=== PATIENT | male | born 1975 | race Caucasian/White ===

== ENCOUNTER 2023-04-24 16:52 | Inpatient (IN) | payer MEDICARE, MEDICAID, SELFPAY ==
[2023-04-24 17:30] VITALS: BP 102/73; PULSE 111; RESP 18; TEMP 36.6; O2SAT 100; BMI 26.9
--- NOTE | 2023-04-24 18:54 | PC.ADMIT ---
Jamel was admitted to [facility] at 1715 on 04/24/23 from [facility] ED for treatment of schizophrenia. He signed a CV. Jamel broke into his lock box of medications and took 10 clonidine tablets. He initially stated to crisis that he was just trying to get some sleep, but on admission to [facility] stated to this RN that this was a suicide attempt. He also endorses increased AH and VH and paranoia. He is a&ox4 and was pleasant and cooperative with admission process. He reports he is feeling anxious. He denied AVH during admission interview, but after almost every question, he would repeat the question, pause, and tilt his head as if listening before answering this RN. Thought process appears disorganized and patient would answer questions inappropriately at times. He reports difficulty falling asleep and staying asleep. He stated that his goal for treatment to detox from marijuana . BAL <3 and utox positive for THC. He reports past substance abuse but stated I don't want to talk about that now . Jamel reported that he has psoriasis and was noted to have rashes all over his body and face. He denies suicidal and homicidal thoughts and intent and reports he feels safe and can seek out staff if feeling unsafe. Sharps check was completed by this RN and male MHC.
[2023-04-24 20:20] VITALS: BP 119/69; PULSE 69; RESP 16; TEMP 36.1; O2SAT 99
[2023-04-24] MEDS: chlorproMAZINE HCl 100 MG TABLET 400 MG PO (21:28)
[2023-04-24] MEDS: Divalproex Sodium 500 MG TABLET.DR 1500 MG PO (21:29)
[2023-04-24] MEDS: clonazePAM 1 MG TABLET PO (23:05)
[2023-04-25 08:30] VITALS: BP 122/67; PULSE 110; TEMP 36.8; O2SAT 98
[2023-04-25] MEDS: Metoprolol Succinate ER 50 MG TAB.ER.24H PO (08:38)
[2023-04-25] MEDS: metFORMIN HCl ER 500 MG TAB.ER.24H 1000 MG PO (08:38)
[2023-04-25] MEDS: amLODIPine Besylate 5 MG TABLET PO (08:38)
[2023-04-25] MEDS: Loratadine 10 MG TABLET PO (08:39)
[2023-04-25] MEDS: Atorvastatin Calcium 40 MG TABLET PO (08:39)
--- NOTE | 2023-04-25 08:48 | HO.PSYADMNOT ---
HPI Chief Complaint: Schizophrenia Spectrum,Psychotic Disorder Diagnostics Vital Signs (24Hr): Vital Signs - 24 hr 04/24/23 17:30 04/24/23 20:20 04/25/23 08:30 Temperature 97.8 F 96.9 F 98.3 F Pulse Rate 111 H 69 110 H Respiratory Rate 18 16 Blood Pressure 102/73 119/69 122/67 Pulse Oximetry 100 99 98 Oxygen Delivery Method Room Air Room Air Room Air BMI result Body Mass Index 26.9 Meds/Allergies Meds Home Medications Medication Instructions Recorded Confirmed Type amlodipine 5 mg tablet 5 mg PO DAILY 04/24/23 04/24/23 History aripiprazole 15 mg tablet 15 mg PO DAILY 04/24/23 04/24/23 History atorvastatin 40 mg tablet 40 mg PO DAILY 04/24/23 04/24/23 History celecoxib 100 mg capsule 100 mg PO BID PRN pain 04/24/23 04/24/23 History cetirizine 10 mg tablet 10 mg PO DAILY 04/24/23 04/24/23 History chlorpromazine 200 mg tablet 400 mg PO BEDTIME 04/24/23 04/24/23 History chlorpromazine 50 mg tablet 50 mg PO BID PRN anxiety 04/24/23 04/24/23 History clonazepam 1 mg tablet 1 mg PO BID PRN Anxiety 04/24/23 04/24/23 History clonidine HCl 0.1 mg tablet 0.1 mg PO DAILY PRN Anxiety 04/24/23 04/24/23 History divalproex 500 mg tablet,delayed 1,500 mg PO BEDTIME 04/24/23 04/24/23 History release hydroxyzine pamoate 50 mg capsule 50 mg PO Q4-5H PRN Anxiety 04/24/23 04/24/23 History metformin 500 mg tablet,extended 1,000 mg PO DAILY 04/24/23 04/24/23 History release 24 hr metoprolol succinate 50 mg 50 mg PO DAILY 04/24/23 04/24/23 History tablet,extended release 24 hr trazodone 50 mg tablet 50 mg PO BEDTIME 04/24/23 04/24/23 History Allergies Allergies Allergy/AdvReac Type Severity Reaction Status Date / Time bee pollen Allergy Unknown Verified 04/24/23 17:33 haloperidol [From Haldol] Allergy Unknown Verified 04/24/23 17:33 perphenazine [From Trilafon] Allergy Unknown Verified 04/24/23 17:33 Assessment & Plan Statement Statement: I have reviewed the history and physical and performed a pertinent examination on my patient. No changes have occurred unless specified. If the History and Physical was not performed prior to admission, the Hospitalist's service will be consulted for completing the admission physical. Time Spent With Patient Time: Total time managing care of this patient today ____ minutes.
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
[2023-04-25 11:26] LABS: Cholesterol 103 mg/dL; Creatinine Clr Calc Pharmacy 101.5; Estimated Glomerular Filt Rate > 60; HDL Cholesterol 40 mg/dL; LDL Cholesterol Calculated 45 mg/dl; Triglycerides 92 mg/dL
--- NOTE | 2023-04-25 12:19 | HO.PM.IMCN ---
History of Present Illness Data of Consult Service Date: 04/25/23 Primary Care Provider: Unknown Physician HPI Reason for consult: Admission H&P Pt is a 47-year-old male with a PMH significant for?HTN, HLD, wqw-ranhhxy-osazmieso diabetes type 2, seasonal allergies, and psoriasis who is admitted to [facility] psychiatry unit for increasing auditory hallucinations and possibly ODing clonidine by taking 10 tablets in order to go to sleep. Patient denies any SI. Medical consult for admission H&P. ?Patient complains of back ?tightness? and diffuse back pain. Denies any trauma to the area or recent falls. Says his back has been bothering him since sleeping on the ER bed. Pt also notes his psoriasis has been worsening the past few weeks and he now has lesions on face, elbows, knees, lower extremities. Denies itching or pain. It is not clear if patient regularly sees a PCP course followed by a digital account director. Patient apparently not on any medication for psoriasis. Patient denies chest pain/pressure, palpitations. No shortness of breath. Denies fever, chills, nausea, vomiting, diarrhea. Review of Systems Review of Systems: Back tightness and muscle pain Worsening psoriasis on face, elbows, knees, lower legs Denies chest pain/pressure, palpitations No shortness of breath Denies fever, chills, nausea, abdominal pain Yes all other systems are reviewed and are negative [facility] Social History Household Members: None Housing: Apartment Do you presently have visiting nurse or other home services: Yes (twice a day, has lock box) Patient Tobacco Use Status: Current everyday Tobacco user Tobacco use type: Cigar e-Cigarette/Vaping Use: Currently Using Second Hand Smoke Exposure: Yes Substance Use Type: Marijuana service: No Sexual orientation: Don't Know Meds Allergies Allergy/AdvReac Type Severity Reaction Status Date / Time bee pollen Allergy Unknown Verified 04/24/23 17:33 haloperidol [From Haldol] Allergy Unknown Verified 04/24/23 17:33 perphenazine [From Trilafon] Allergy Unknown Verified 04/24/23 17:33 Active Medications: Current Medications Acetaminophen (Acetaminophen 325 Mg Tablet) 650 mg PO Q6H PRN PRN Reason: Headache/Pain Mild Scale (1-3) Al Hydroxide/Mg Hydroxide (Magnesium Hydrox/Alum Hydrox 30 Ml Oral.Susp) 30 ml PO Q6H PRN PRN Reason: Heartburn/Nausea Amlodipine Besylate (Amlodipine Besylate 5 Mg Tablet) 5 mg PO DAILY [facility]; Protocol Last Admin: 04/25/23 08:38 Dose: 5 mg Atorvastatin Calcium (Atorvastatin Calcium 40 Mg Tablet) 40 mg PO DAILY [facility] Last Admin: 04/25/23 08:39 Dose: 40 mg Celecoxib (Celecoxib 100 Mg Capsule) 100 mg PO BID PRN PRN Reason: pain/inflamation Chlorpromazine HCl (Chlorpromazine Hcl 25 Mg Tablet) 50 mg PO BID PRN PRN Reason: anxiety Last Admin: 04/24/23 23:05 Dose: 50 mg Chlorpromazine HCl (Chlorpromazine Hcl 100 Mg Tablet) 400 mg PO BEDTIME [facility] Last Admin: 04/24/23 21:28 Dose: 400 mg Clonazepam (Clonazepam 1 Mg Tablet) 1 mg PO BID PRN PRN Reason: Anxiety Last Admin: 04/24/23 23:05 Dose: 1 mg Clonidine HCl (Clonidine Hcl 0.1 Mg Tablet) 0.1 mg PO DAILY PRN; Protocol PRN Reason: Anxiety Divalproex Sodium (Divalproex Sodium 500 Mg Tablet.Dr) 1,500 mg PO BEDTIME [facility] Last Admin: 04/24/23 21:29 Dose: 1,500 mg Hydroxyzine HCl (Hydroxyzine Hcl 50 Mg Tablet) 50 mg PO Q6H PRN PRN Reason: Anxiety Loratadine (Loratadine 10 Mg Tablet) 10 mg PO DAILY [facility] Last Admin: 04/25/23 08:39 Dose: 10 mg Magnesium Hydroxide (Milk Of Magnesia 30 Ml Oral.Susp) 30 ml PO DAILY PRN PRN Reason: Constipation Metformin HCl (Metformin Hcl Er 500 Mg Tab.Er.24h) 1,000 mg PO DAILY [facility] Last Admin: 04/25/23 08:38 Dose: 1,000 mg Metoprolol Succinate (Metoprolol Succinate Er 50 Mg Tab.Er.24h) 50 mg PO DAILY [facility]; Protocol Last Admin: 04/25/23 08:38 Dose: 50 mg Nicotine Polacrilex (Nicotine Polacrilex 2 Mg Gum) 4 mg BUCCAL Q2H PRN PRN Reason: Nicotine Cravings Trazodone HCl (Trazodone Hcl 50 Mg Tablet) 50 mg PO BEDTIME PRN PRN Reason: insomnia Home Medications Medication Instructions Recorded Confirmed Last Taken Type amlodipine 5 mg tablet 5 mg PO DAILY 04/24/23 04/24/23 Unknown History aripiprazole 15 mg tablet 15 mg PO DAILY 04/24/23 04/24/23 Unknown History atorvastatin 40 mg tablet 40 mg PO DAILY 04/24/23 04/24/23 Unknown History celecoxib 100 mg capsule 100 mg PO BID PRN pain 04/24/23 04/24/23 Unknown History cetirizine 10 mg tablet 10 mg PO DAILY 04/24/23 04/24/23 Unknown History chlorpromazine 200 mg tablet 400 mg PO BEDTIME 04/24/23 04/24/23 Unknown History chlorpromazine 50 mg tablet 50 mg PO BID PRN anxiety 04/24/23 04/24/23 Unknown History clonazepam 1 mg tablet 1 mg PO BID PRN Anxiety 04/24/23 04/24/23 Unknown History clonidine HCl 0.1 mg tablet 0.1 mg PO DAILY PRN Anxiety 04/24/23 04/24/23 Unknown History divalproex 500 mg tablet,delayed 1,500 mg PO BEDTIME 04/24/23 04/24/23 Unknown History release hydroxyzine pamoate 50 mg capsule 50 mg PO Q4-5H PRN Anxiety 04/24/23 04/24/23 Unknown History metformin 500 mg tablet,extended 1,000 mg PO DAILY 04/24/23 04/24/23 Unknown History release 24 hr metoprolol succinate 50 mg 50 mg PO DAILY 04/24/23 04/24/23 Unknown History tablet,extended release 24 hr trazodone 50 mg tablet 50 mg PO BEDTIME 04/24/23 04/24/23 Unknown History Physical Exam Vital Signs and Narrative: Vital Signs: Last Vital Signs Temp 98.3 F 04/25/23 08:30 Pulse 110 H 04/25/23 08:30 Resp 16 04/24/23 20:20 BP 122/67 04/25/23 08:30 Pulse Ox 98 04/25/23 08:30 O2 Del Method Room Air 04/25/23 08:30 BMI result Body Mass Index 26.9 Constitutional: Alert, restless, cooperative, in no acute distress. Mental Status: Oriented to person, place and time. Eyes: Pupils are equal, round, and reactive to light. Ear, Nose, and Throat: Oropharynx clear, mucous membranes moist. Ears and nose without deformities. Trachea midline. Respiratory: Clear to auscultation bilaterally. No wheezing, rales, or rhonchi. Cardiovascular: S1, S2 regular. No murmurs, rubs, or gallops. Gastrointestinal: Abdomen soft, non-tender, non-distended. Normal bowel sounds. Neurologic: Cranial nerves II-XII are grossly intact bilaterally. No focal neurological deficits. Moves all extremities spontaneously. Skin: Scaly plaques and patches noted on upper and lower extensor services bilaterally, as well as on face, ears bilaterally, and lower legs bilaterally. Musculoskeletal: No cyanosis or clubbing. Extremities: No edema. Psychiatric: Pressured speech, easily redirectable, cooperative. Results Labs 04/25/23 09:01 Labs: Laboratory Results - last 24 hr 04/25/23 04/25/23 09:01 09:01 Estim Creat Clear Calc 101.5 Estimated GFR > 60 Estimat Average Glucose 126 Hemoglobin A1c % 6.0 Triglycerides 92 Cholesterol 103 LDL Cholesterol, Calc 45 HDL Cholesterol 40 Assessment and Plan (1) Routine history and physical examination of adult: Status: Acute (2) Psoriasis: Status: Acute Plan Pt is a 47-year-old male with a PMH significant for?HTN, HLD, zli-uqidgib-trishgact diabetes type 2, seasonal allergies, and psoriasis who is admitted to [facility] psychiatry unit for increasing auditory hallucinations and possibly ODing clonidine by taking 10 tablets in order to go to sleep. Patient denies any SI. Medical consult for admission H&P. ? Mood disorder Plan as per Psychiatry Psoriasis Patient has psoriatic outbreak on face, ears, upper and lower extensor surfaces bilaterally, and lower legs Has apparently been worsening over the past few weeks Does not appear to be followed by digital account director or PCP, not on any home meds Pt not currently complaining of itching or pain Eucerin oitment for symptomatic relief Should follow up outpatient with PCP/digital account director If patient complains of itching, consider adding topical topical corticosteroid Back pain/tightness Acetaminophen for pain management Seasonal allergies Continue cetirizine HLD Continue statin HTN Continue amlodipine Non-insulin dependent diabetes type 2 Continue metformin Thank you for allowing us to participate in the care of this patient. Signing off at this time. Please let us know if there are any acute complaints or questions. Time Spent With Patient Time: Total time managing care of this patient today ____ minutes.
[2023-04-25] MEDS: ARIPiprazole 15 MG TABLET PO (15:30)
[2023-04-25 21:15] VITALS: BP 140/80; PULSE 104; RESP 18; TEMP 36.4; O2SAT 98
[2023-04-25] MEDS: Divalproex Sodium 500 MG TABLET.DR 1500 MG PO (21:29)
[2023-04-25] MEDS: chlorproMAZINE HCl 100 MG TABLET 400 MG PO (21:29)
[2023-04-25] MEDS: clonazePAM 1 MG TABLET PO (21:29)
[2023-04-26 06:00] VITALS: BP 138/82; PULSE 102; RESP 18; TEMP 36.6; O2SAT 98
[2023-04-26] MEDS: clonazePAM 1 MG TABLET PO ×2 (08:39→20:51)
[2023-04-26] MEDS: Acetaminophen 325 MG TABLET 650 MG PO (08:39)
[2023-04-26] MEDS: metFORMIN HCl ER 500 MG TAB.ER.24H 1000 MG PO (08:39)
[2023-04-26] MEDS: Atorvastatin Calcium 40 MG TABLET PO (08:39)
[2023-04-26] MEDS: Metoprolol Succinate ER 50 MG TAB.ER.24H PO (08:39)
[2023-04-26] MEDS: Loratadine 10 MG TABLET PO (08:40)
[2023-04-26] MEDS: amLODIPine Besylate 5 MG TABLET PO (08:40)
[2023-04-26] MEDS: ARIPiprazole 15 MG TABLET PO (08:40)
--- NOTE | 2023-04-26 16:03 | HO.PSYCHPN ---
Subjective Subjective Date of Service: 04/26/23 Reason For Visit: Schizophrenia Spectrum,Psychotic Disorder Interim History: denies AH. AH have progressively improved since admission. denies Sx today broadly speaking. happy. slept OK last night. per staff, 8 anx yesterday. +AH of family screaming yesterday. attended stretching group. taking meds. Mental Status Exam Mental Status Exam Narrative: Pt is alert and oriented; behavior is cooperative, friendly and calm; patient is not in distress; dressed in casual attire; mood is described as happy ; eye contact appropriate; Speech is normal rate, volume and prosody and not pressured; no psychomotor agitation/retardation present; thought process is organized; Thought content not indicative of delusions or paranoia; otherwise pertinent to relevant topics. denies AH. There is no evidence of perceptual disturbance. Patients insight and judgment are poor. Diagnostics Vital Signs (24Hr): Vital Signs - 24 hr 04/25/23 21:15 04/26/23 06:00 Temperature 97.6 F 97.8 F Pulse Rate 104 H 102 H Respiratory Rate 18 18 Blood Pressure 140/80 H 138/82 Pulse Oximetry 98 98 Oxygen Delivery Method Room Air Room Air BMI result Body Mass Index 26.9 Labs 04/25/23 09:01 Labs: Laboratory Results - last 48 hr 04/25/23 04/25/23 09:01 09:01 Creatinine 0.82 Estim Creat Clear Calc 101.5 Estimated GFR > 60 Estimat Average Glucose 126 Hemoglobin A1c % 6.0 Triglycerides 92 Cholesterol 103 LDL Cholesterol, Calc 45 HDL Cholesterol 40 Medications Medications Current Medications Acetaminophen (Acetaminophen 325 Mg Tablet) 650 mg PO Q6H PRN PRN Reason: Headache/Pain Mild Scale (1-3) Last Admin: 04/26/23 08:39 Dose: 650 mg Al Hydroxide/Mg Hydroxide (Magnesium Hydrox/Alum Hydrox 30 Ml Oral.Susp) 30 ml PO Q6H PRN PRN Reason: Heartburn/Nausea Amlodipine Besylate (Amlodipine Besylate 5 Mg Tablet) 5 mg PO DAILY [facility]; Protocol Last Admin: 04/26/23 08:40 Dose: 5 mg Aripiprazole (Aripiprazole 15 Mg Tablet) 15 mg PO DAILY [facility] Last Admin: 04/26/23 08:40 Dose: 15 mg Atorvastatin Calcium (Atorvastatin Calcium 40 Mg Tablet) 40 mg PO DAILY [facility] Last Admin: 04/26/23 08:39 Dose: 40 mg Celecoxib (Celecoxib 100 Mg Capsule) 100 mg PO BID PRN PRN Reason: pain/inflamation Chlorpromazine HCl (Chlorpromazine Hcl 25 Mg Tablet) 50 mg PO BID PRN PRN Reason: anxiety Last Admin: 04/24/23 23:05 Dose: 50 mg Chlorpromazine HCl (Chlorpromazine Hcl 100 Mg Tablet) 400 mg PO BEDTIME [facility] Last Admin: 04/25/23 21:29 Dose: 400 mg Clonazepam (Clonazepam 1 Mg Tablet) 1 mg PO BID PRN PRN Reason: Anxiety Last Admin: 04/26/23 08:39 Dose: 1 mg Clonidine HCl (Clonidine Hcl 0.1 Mg Tablet) 0.1 mg PO DAILY PRN; Protocol PRN Reason: Anxiety Divalproex Sodium (Divalproex Sodium 500 Mg Tablet.Dr) 1,500 mg PO BEDTIME [facility] Last Admin: 04/25/23 21:29 Dose: 1,500 mg Hydroxyzine HCl (Hydroxyzine Hcl 50 Mg Tablet) 50 mg PO Q6H PRN PRN Reason: Anxiety Loratadine (Loratadine 10 Mg Tablet) 10 mg PO DAILY [facility] Last Admin: 04/26/23 08:40 Dose: 10 mg Magnesium Hydroxide (Milk Of Magnesia 30 Ml Oral.Susp) 30 ml PO DAILY PRN PRN Reason: Constipation Metformin HCl (Metformin Hcl Er 500 Mg Tab.Er.24h) 1,000 mg PO DAILY [facility] Last Admin: 04/26/23 08:39 Dose: 1,000 mg Metoprolol Succinate (Metoprolol Succinate Er 50 Mg Tab.Er.24h) 50 mg PO DAILY [facility]; Protocol Last Admin: 04/26/23 08:39 Dose: 50 mg Multi-Ingred Cream/Lotion/Oil/Oint (Mineral Oil/Petrolatum,White 106 Gm Tube) 1 appl TOPICAL BID [facility]; Protocol Last Admin: 04/26/23 08:42 Dose: Not Given Nicotine Polacrilex (Nicotine Polacrilex 2 Mg Gum) 4 mg BUCCAL Q2H PRN PRN Reason: Nicotine Cravings Trazodone HCl (Trazodone Hcl 50 Mg Tablet) 50 mg PO BEDTIME PRN PRN Reason: insomnia Allergies Allergies Allergy/AdvReac Type Severity Reaction Status Date / Time bee pollen Allergy Unknown Verified 04/24/23 17:33 haloperidol [From Haldol] Allergy Unknown Verified 04/24/23 17:33 perphenazine [From Trilafon] Allergy Unknown Verified 04/24/23 17:33 Assessment & Plan Assessment & Plan (1) Schizophrenia: Status: Acute Code(s): F20.9 - Schizophrenia, unspecified Plan Patient is a 47 year old male with hx of schizophrenia who presented to [facility] d/t possible overdose on clonidine and increased auditory hallucinations secondary to not sleeping. Plan: 3 day 15 minute safety checks Obtain collateral Home medications restarted. Consider stating long acting injectable. Call placed to patients outpatient prescriber; Marie Couch; to obtain collateral. Waiting for call back. 04/26: Sx much improved today, says mood is happy and denies all AH. continue current mgmt. Reason for continued inpatient stay Substantial Risk for: inability to function and rapid decompensation Time Spent With Patient Time: Total time managing care of this patient today ____ minutes.
[2023-04-26 16:29] VITALS: BP 131/81; PULSE 104
[2023-04-26 20:36] VITALS: BP 149/85; PULSE 92; RESP 18; TEMP 36.4; O2SAT 97
[2023-04-26] MEDS: Divalproex Sodium 500 MG TABLET.DR 1500 MG PO (20:51)
[2023-04-26] MEDS: chlorproMAZINE HCl 100 MG TABLET 400 MG PO (20:51)
[2023-04-27 06:00] VITALS: BP 131/82; PULSE 101; RESP 16; TEMP 36.1; O2SAT 98
[2023-04-27] MEDS: Loratadine 10 MG TABLET PO (08:13)
[2023-04-27] MEDS: Atorvastatin Calcium 40 MG TABLET PO (08:13)
[2023-04-27] MEDS: amLODIPine Besylate 5 MG TABLET PO (08:13)
[2023-04-27] MEDS: ARIPiprazole 15 MG TABLET PO (08:13)
[2023-04-27] MEDS: metFORMIN HCl ER 500 MG TAB.ER.24H 1000 MG PO (08:13)
[2023-04-27] MEDS: Metoprolol Succinate ER 50 MG TAB.ER.24H PO (08:14)
[2023-04-27] MEDS: Nicotine 21 MG PATCH.TD24 TRANSDERMA (12:48)
--- NOTE | 2023-04-27 14:49 | HO.PSYCHPN ---
Subjective Subjective Date of Service: 04/27/23 Reason For Visit: Schizophrenia Spectrum,Psychotic Disorder Interim History: asking for 21 mg samanta patch. denies AH for past couple of days. mood rising and falling. declines med changes. per staff, pleasant. sleeping well. med and meal compliant. Mental Status Exam Mental Status Exam Narrative: Pt is alert and oriented; behavior is cooperative, friendly and calm; patient is not in distress; dressed in casual attire; mood is described as rising and falling ; eye contact appropriate; Speech is normal rate, volume and prosody and not pressured; no psychomotor agitation/retardation present; thought process is organized; Thought content not indicative of delusions or paranoia; otherwise pertinent to relevant topics. denies AH. There is no evidence of perceptual disturbance. Patients insight and judgment are poor. Diagnostics Vital Signs (24Hr): Vital Signs - 24 hr 04/26/23 16:29 04/26/23 20:36 04/27/23 06:00 Temperature 97.6 F 97.0 F Pulse Rate 104 H 92 101 H Respiratory Rate 18 16 Blood Pressure 131/81 149/85 H 131/82 Pulse Oximetry 97 98 Oxygen Delivery Method Room Air Room Air BMI result Body Mass Index 26.9 Labs 04/25/23 09:01 Medications Medications Current Medications Acetaminophen (Acetaminophen 325 Mg Tablet) 650 mg PO Q6H PRN PRN Reason: Headache/Pain Mild Scale (1-3) Last Admin: 04/26/23 08:39 Dose: 650 mg Al Hydroxide/Mg Hydroxide (Magnesium Hydrox/Alum Hydrox 30 Ml Oral.Susp) 30 ml PO Q6H PRN PRN Reason: Heartburn/Nausea Amlodipine Besylate (Amlodipine Besylate 5 Mg Tablet) 5 mg PO DAILY [facility]; Protocol Last Admin: 04/27/23 08:13 Dose: 5 mg Aripiprazole (Aripiprazole 15 Mg Tablet) 15 mg PO DAILY [facility] Last Admin: 04/27/23 08:13 Dose: 15 mg Atorvastatin Calcium (Atorvastatin Calcium 40 Mg Tablet) 40 mg PO DAILY [facility] Last Admin: 04/27/23 08:13 Dose: 40 mg Celecoxib (Celecoxib 100 Mg Capsule) 100 mg PO BID PRN PRN Reason: pain/inflamation Chlorpromazine HCl (Chlorpromazine Hcl 25 Mg Tablet) 50 mg PO BID PRN PRN Reason: anxiety Last Admin: 04/24/23 23:05 Dose: 50 mg Chlorpromazine HCl (Chlorpromazine Hcl 100 Mg Tablet) 400 mg PO BEDTIME PRO Last Admin: 04/26/23 20:51 Dose: 400 mg Clonazepam (Clonazepam 1 Mg Tablet) 1 mg PO BID PRN PRN Reason: Anxiety Last Admin: 04/26/23 20:51 Dose: 1 mg Clonidine HCl (Clonidine Hcl 0.1 Mg Tablet) 0.1 mg PO DAILY PRN; Protocol PRN Reason: Anxiety Last Admin: 04/26/23 16:31 Dose: 0.1 mg Divalproex Sodium (Divalproex Sodium 500 Mg Tablet.Dr) 1,500 mg PO BEDTIME PRO Last Admin: 04/26/23 20:51 Dose: 1,500 mg Hydroxyzine HCl (Hydroxyzine Hcl 50 Mg Tablet) 50 mg PO Q6H PRN PRN Reason: Anxiety Last Admin: 04/26/23 16:31 Dose: 50 mg Loratadine (Loratadine 10 Mg Tablet) 10 mg PO DAILY PRO Last Admin: 04/27/23 08:13 Dose: 10 mg Magnesium Hydroxide (Milk Of Magnesia 30 Ml Oral.Susp) 30 ml PO DAILY PRN PRN Reason: Constipation Metformin HCl (Metformin Hcl Er 500 Mg Tab.Er.24h) 1,000 mg PO DAILY [facility] Last Admin: 04/27/23 08:13 Dose: 1,000 mg Metoprolol Succinate (Metoprolol Succinate Er 50 Mg Tab.Er.24h) 50 mg PO DAILY PRO; Protocol Last Admin: 04/27/23 08:14 Dose: 50 mg Multi-Ingred Cream/Lotion/Oil/Oint (Mineral Oil/Petrolatum,White 106 Gm Tube) 1 appl TOPICAL BID PRO; Protocol Last Admin: 04/27/23 08:14 Dose: Not Given Nicotine (Nicotine 21 Mg Patch.Td24) 21 mg TRANSDERMA DAILY [facility] Last Admin: 04/27/23 12:48 Dose: 21 mg Nicotine Polacrilex (Nicotine Polacrilex 2 Mg Gum) 4 mg BUCCAL Q2H PRN PRN Reason: Nicotine Cravings Trazodone HCl (Trazodone Hcl 50 Mg Tablet) 50 mg PO BEDTIME PRN PRN Reason: insomnia Allergies Allergies Allergy/AdvReac Type Severity Reaction Status Date / Time bee pollen Allergy Unknown Verified 04/24/23 17:33 haloperidol [From Haldol] Allergy Unknown Verified 04/24/23 17:33 perphenazine [From Trilafon] Allergy Unknown Verified 04/24/23 17:33 Assessment & Plan Assessment & Plan (1) Schizophrenia: Status: Acute Code(s): F20.9 - Schizophrenia, unspecified Plan Patient is a 47 year old male with hx of schizophrenia who presented to [facility] d/t possible overdose on clonidine and increased auditory hallucinations secondary to not sleeping. Plan: 3 day 15 minute safety checks Obtain collateral Home medications restarted. Consider stating long acting injectable. Call placed to patients outpatient prescriber; Marie Couch; to obtain collateral. Waiting for call back. 04/26: Sx much improved today, says mood is happy and denies all AH. continue current mgmt. 04/27: mood rising and falling but AH have remained resolved. continue current mgmt. Reason for continued inpatient stay Substantial Risk for: harm to self, inability to function and rapid decompensation Time Spent With Patient Time: Total time managing care of this patient today ____ minutes.
[2023-04-27 21:03] VITALS: BP 140/85; PULSE 102; TEMP 36.8; O2SAT 98
[2023-04-27] MEDS: chlorproMAZINE HCl 100 MG TABLET 400 MG PO (21:05)
[2023-04-27] MEDS: Divalproex Sodium 500 MG TABLET.DR 1500 MG PO (21:06)
[2023-04-27] MEDS: Nicotine Polacrilex 2 MG GUM 4 MG BUCCAL (21:11)
[2023-04-28 08:00] VITALS: BP 127/70; PULSE 105; RESP 18; TEMP 36.7; O2SAT 100
[2023-04-28] MEDS: metFORMIN HCl ER 500 MG TAB.ER.24H 1000 MG PO (08:59)
[2023-04-28] MEDS: Atorvastatin Calcium 40 MG TABLET PO (09:06)
[2023-04-28] MEDS: Metoprolol Succinate ER 50 MG TAB.ER.24H PO (09:06)
[2023-04-28] MEDS: ARIPiprazole 15 MG TABLET PO (09:06)
[2023-04-28] MEDS: Loratadine 10 MG TABLET PO (09:07)
[2023-04-28] MEDS: Nicotine 21 MG PATCH.TD24 TRANSDERMA (09:07)
[2023-04-28] MEDS: amLODIPine Besylate 5 MG TABLET PO (09:07)
[2023-04-28] MEDS: Nicotine Polacrilex 2 MG GUM 4 MG BUCCAL ×2 (11:02→16:55)
--- NOTE | 2023-04-28 14:49 | P.DS_ITS ---
DS: Providers Provider Date of Service: 04/28/23 Date of admission: 04/24/23 16:52 Primary care physician: Unknown Physician Consults: 04/24/23 17:34 Consult to Hospitalist Routine Comment: Consulting Provider: Hospitalist Reason For Exam: admission from [facility] ED DS: Diagnosis Discharge Diagnosis (1) Schizophrenia: Status: Acute DS: Medications Discharge Medications Home Medications: Home Medications Medication Instructions Recorded Confirmed hydroxyzine pamoate 50 mg capsule 50 mg PO Q4-5H PRN Anxiety 04/24/23 04/24/23 Previous Rx's Medication Instructions Recorded amlodipine 5 mg tablet 5 mg PO DAILY 30 days #30 tabs 04/28/23 aripiprazole 15 mg tablet 15 mg PO DAILY 30 days #30 tabs 04/28/23 atorvastatin 40 mg tablet 40 mg PO DAILY 30 days #30 tabs 04/28/23 celecoxib 100 mg capsule 100 mg PO BID PRN pain 30 days #60 04/28/23 caps cetirizine 10 mg tablet 10 mg PO DAILY 30 days #30 tabs 04/28/23 chlorpromazine 200 mg tablet 400 mg PO BEDTIME 30 days #60 tabs 04/28/23 chlorpromazine 50 mg tablet 50 mg PO BID PRN anxiety 30 days 04/28/23 #60 tabs clonazepam 1 mg tablet 1 mg PO BID PRN Anxiety 30 days 04/28/23 #60 tabs clonidine HCl 0.1 mg tablet 0.1 mg PO DAILY PRN Anxiety 30 04/28/23 days #30 tabs divalproex 500 mg tablet,delayed 1,500 mg PO BEDTIME 30 days #90 04/28/23 release tabs metformin 500 mg tablet,extended 1,000 mg PO DAILY 30 days #60 tabs 04/28/23 release 24 hr metoprolol succinate 50 mg 50 mg PO DAILY 30 days #30 tabs 04/28/23 tablet,extended release 24 hr nicotine (polacrilex) 2 mg gum 4 mg buccal Q2H PRN Nicotine 04/28/23 Cravings 30 days #180 ea nicotine 21 mg/24 hr daily 21 mg transdermal DAILY 28 days 04/28/23 transdermal patch #28 ea trazodone 50 mg tablet 50 mg PO BEDTIME 30 days #30 tabs 04/28/23 Mental Status Exam Mental Status Exam Narrative: Pt is alert and oriented; behavior is cooperative, friendly and calm; patient is not in distress; dressed in casual attire; mood is described as good; eye contact appropriate; Speech is normal rate, volume and prosody and not pressured; no psychomotor agitation/retardation present; thought process is organized; Thought content not indicative of delusions or paranoia; otherwise pertinent to relevant topics. denies SI/HI/AH. There is no evidence of perceptual disturbance. Patients insight and judgment are poor. Data Data Completed and Pending Completed studies during hospitalization [Text1]: 04/25/23 04/25/23 09:01 09:01 Creatinine 0.82 Estim Creat Clear Calc 101.5 Estimated GFR > 60 Estimat Average Glucose 126 Hemoglobin A1c % 6.0 Triglycerides 92 Cholesterol 103 LDL Cholesterol, Calc 45 HDL Cholesterol 40 DS: Summary Time Spent with Patient Time attestation: Total time managing care of this patient today ____ minutes. Discharge Plan Discharge Anticipated Discharge Date/Time: 04/29/23 11:30 Patient Disposition: Home, Self-Care Discharge Diagnosis: Schizophrenia, Paranoid Type Referrals: [facility] [Other] - 04/30/23 12:50 pm (Psychiatry appointment 04/30 at 1250.) [facility] [Other] - 05/01/23 10:00 am (Therapy appointment 05/01 at 10am.) Physician,Unknown J [Primary Care Provider] - 1 Week Discharge Medications: New nicotine (polacrilex) 2 mg Gum 4 mg buccal Q2H PRN (Reason: Nicotine Cravings) 30 Days Qty: 180 0RF nicotine 21 mg/24 hr Patch 24 Hour 21 mg transdermal DAILY 28 Days Qty: 28 0RF Continued hydroxyzine pamoate 50 mg capsule 50 mg PO Q4-5H PRN (Reason: Anxiety) atorvastatin 40 mg tablet 40 mg PO DAILY 30 Days Qty: 30 0RF clonidine HCl 0.1 mg tablet 0.1 mg PO DAILY PRN (Reason: Anxiety) 30 Days Qty: 30 0RF trazodone 50 mg tablet 50 mg PO BEDTIME 30 Days Qty: 30 0RF cetirizine 10 mg tablet 10 mg PO DAILY 30 Days Qty: 30 0RF metoprolol succinate 50 mg tablet extended release 24 hr 50 mg PO DAILY 30 Days Qty: 30 0RF clonazepam 1 mg tablet 1 mg PO BID PRN (Reason: Anxiety) 30 Days Qty: 60 0RF amlodipine 5 mg tablet 5 mg PO DAILY 30 Days Qty: 30 0RF divalproex 500 mg tablet,delayed release (DR/EC) 1,500 mg PO BEDTIME 30 Days Qty: 90 0RF chlorpromazine 200 mg tablet 400 mg PO BEDTIME 30 Days Qty: 60 0RF celecoxib 100 mg capsule 100 mg PO BID PRN (Reason: pain) 30 Days Qty: 60 0RF metformin 500 mg tablet extended release 24 hr 1,000 mg PO DAILY 30 Days Qty: 60 0RF chlorpromazine 50 mg tablet 50 mg PO BID PRN (Reason: anxiety) 30 Days Qty: 60 0RF aripiprazole 15 mg tablet 15 mg PO DAILY 30 Days Qty: 30 0RF Discharge Orders: Discharge Order (Routine); Ordered 04/29/23 Ordered By: Lyndon Mcarthur Diet: Advance to usual diet Activity on Discharge: As tolerated Stand Alone Forms: Patient Portal Discharge page Care Plan Goals: remain safe and stable in the outpatient treatment setting Health Concerns: psoriasis Plan of Treatment: take medications as prescribed, attend appointments as scheduled Assessment: not at imminent risk of harm to self or others
[2023-04-28 20:22] LABS: MANUAL DIFF FLAG NO
[2023-04-28 20:25] LABS: Basophils Percent Auto 0.3 % (0-2); Eosinophils Percent Auto 0.3 % (0-4); Hemoglobin 16.7 g/dl (14.0-18.0); Imm Gran Abs Auto 0.01 X10*3/uL (0.00-0.03); Imm Gran Pct Auto 0.2 % (0.0-0.4); Lymphocytes Absolute Auto 1.5 X10*3/uL (1.2-4.9); Lymphocytes Percent Auto 25.7 % (20-40); Mean Corpuscular HGB Conc 35.5 g/dl (31.0-36.0); Mean Corpuscular Hemoglobin 32.2 pg (27.0-33.0); Mean Corpuscular Volume 90.7 fL (80.0-98.0); Mean Platelet Volume 9.6 fL (9.4-12.4); Monocytes Absolute Auto 0.7 X10*3/uL (0.1-1.2); Neutrophils Absolute Auto 3.7 x10*3/uL (2.0-8.3); Neutrophils Percent Auto 62.5 % (45-73); Platelet Count 165 X10*3/uL (160-400); Red Blood Count 5.18 X10*6/uL (4.60-5.80); Red Cell Distribution Width 11.9 % (11.0-16.0); White Blood Count 5.9 X10*3/uL (4.8-10.8)
[2023-04-28 20:48] LABS: Valproate 25.9 mcg/mL (50.0-100.0)
[2023-04-28 20:53] LABS: Alanine Aminotransferase 36 U/L (0-40); Albumin Level 4.7 g/dL (3.5-5.0); Alkaline Phosphatase 67 U/L (39-117); Anion Gap 16 (12-20); Aspartate Amino Transferase 39 U/L (5-37); Bilirubin Direct 0.3 mg/dL (0.0-0.5); Bilirubin Total 1.1 mg/dL (0.0-1.0); Blood Urea Nitrogen 7 mg/dL (9-16); Calcium 10.2 mg/dL (8.4-10.2); Carbon Dioxide 27 mmol/L (22-29); Chloride 99 mmol/L (96-108); Creatinine Clr Calc Pharmacy 102.8; Estimated Glomerular Filt Rate > 60; Glucose Random 116 mg/dL (60-115); Potassium 4.6 mmol/L (3.3-5.1); Sodium 137 mmol/L (135-145); Total Protein 7.7 g/dL (6.5-8.0)
[2023-04-28 21:00] VITALS: BP 134/78; PULSE 87; TEMP 36.5; O2SAT 99
[2023-04-28] MEDS: Divalproex Sodium 500 MG TABLET.DR 1500 MG PO (21:02)
[2023-04-28] MEDS: Acetaminophen 325 MG TABLET 650 MG PO (21:03)
[2023-04-28] MEDS: clonazePAM 1 MG TABLET PO (21:03)
[2023-04-28] MEDS: chlorproMAZINE HCl 100 MG TABLET 400 MG PO (21:04)
[2023-04-29] MEDS: Nicotine Polacrilex 2 MG GUM 4 MG BUCCAL (06:43)
[2023-04-29 07:55] VITALS: BP 139/81; PULSE 104; TEMP 36.6; O2SAT 99
[2023-04-29] MEDS: Nicotine 21 MG PATCH.TD24 TRANSDERMA (08:07)
[2023-04-29] MEDS: metFORMIN HCl ER 500 MG TAB.ER.24H 1000 MG PO (08:07)
[2023-04-29] MEDS: Metoprolol Succinate ER 50 MG TAB.ER.24H PO (08:08)
[2023-04-29] MEDS: Loratadine 10 MG TABLET PO (08:09)
[2023-04-29] MEDS: amLODIPine Besylate 5 MG TABLET PO (08:09)
[2023-04-29] MEDS: ARIPiprazole 15 MG TABLET PO (08:09)
[2023-04-29] MEDS: Atorvastatin Calcium 40 MG TABLET PO (08:09)
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
== END 2023-04-29 11:00 | disposition home or self-care (01) | DRG 885 ==
PROVIDERS: Psychiatry & Neurology Psychiatry; Admitting Provider Psychiatry & Neurology Psychiatry; Responsible Provider Registered Nurse; Visit Provider Psychiatry & Neurology Psychiatry
DX: F20.0 Paranoid schizophrenia (principal); E11.9 Type 2 diabetes mellitus without complications; I10 Essential (primary) hypertension; E78.5 Hyperlipidemia, unspecified; L40.9 Psoriasis, unspecified; F17.210 Nicotine dependence, cigarettes, uncomplicated; Z71.6 Tobacco abuse counseling; Z79.84 Long term (current) use of oral hypoglycemic drugs; Z79.899 Other long term (current) drug therapy
CPT/HCPCS: 36415; 80048; 80061; 80076; 80164; 82565; 83036; 85025

== ENCOUNTER → 2023-04-24 16:52 | Outpatient (BNV) | payer MEDICARE, MEDICAID, SELFPAY | PROVIDERS: Admitting Provider Psychiatry & Neurology Psychiatry; Responsible Provider Registered Nurse; Visit Provider Psychiatry & Neurology Psychiatry | DX: F20.89 Other schizophrenia (principal) | CPT/HCPCS: 90792; 99231; 99239 ==